=== PATIENT | female | born 1995 | race Caucasian/White ===

== ENCOUNTER 2019-02-23 12:00 | Emergency (ER) | payer BC ==
[~2019-02-23] VITALS: Ht 165.1 cm; Wt 54.0 kg
[2019-02-23 12:59] LABS: BASOPHILS % 0.7 % (0.0-2.0); EOSINOPHILS % 0.7 % (0.0-5.0); HEMATOCRIT. 43.2 % (36.0-48.0); HEMOGLOBIN. 14.5 g/dL (12.0-16.0); LYMPHOCYTES % 35.3 % (20.0-50.0); MEAN CORPUSCULAR HEMOGLOBIN 27.8 pg (28.0-32.0); MEAN CORPUSCULAR VOLUME 83.1 fL (81.0-99.0); MEAN PLATELET VOLUME 9.6 fl (7.4-10.4); MONOCYTES % 6.1 % (2.0-8.0); NEUTROPHILS % 57.2 % (40.0-76.0); PLATELET 375 x1000/uL (130-400); RED CELL DISTRIBUTION WIDTH 13.1 % (11.6-14.6)
[2019-02-23 13:06] LABS: CHLORIDE 107 mEq/L (98-107)
[2019-02-23 13:54] VITALS: BP 138/75
[2019-02-23] MEDS ORDERED: IOHEXOL-350 100 ML BOTTLE ONE (14:01)
== END 2019-02-23 14:34 | disposition home or self-care (01) ==
LOC: ER 12:00
DX: I73.00 Raynaud's syndrome without gangrene (principal); T69.01 Immersion hand; Z88.2 Allergy status to sulfonamides; Z98.890 Other specified postprocedural states
CPT/HCPCS: 36415; 73206; 80048; 81025; 85025; 99284; Q9967